=== PATIENT | male | born 1985 | race Hispanic/Latino ===

== ENCOUNTER 2017-03-30 12:39 | Emergency (ER) | payer SELFPAY ==
[~2017-03-30] VITALS: Ht 172.7 cm; Wt 98.5 kg
[2017-03-30 15:55] LABS: HEMATOCRIT 45.7 % (38.0-50.0); MCH 29.8 PG (29.0-34.0); MCHC 35.4 G/DL (30.0-36.0); MEAN PLAT.VOLUME 9.9 uM^3 (9.0-12.4); PLATELET COUNT 246 K/uL (156-360); RBC DIS.WIDTH-SD 36.5 % (39-53); RED BLOOD COUNT 5.44 M/uL (4.00-5.50); WHITE BLOOD COUNT 9.6 K/uL (4.1-10.2)
[2017-03-30 16:01] LABS: D-DIMER ELISA < 150.00 ng/mLDDU (<230)
[2017-03-30 16:05] LABS: CHLORIDE 106 mEq/L (99-109); SODIUM 139 mEq/L (136-147)
[2017-03-30 16:07] LABS: GLUCOSE 99 mg/dL (70-99)
[2017-03-30 16:08] LABS: ANION GAP 10 MEQ/L (2-14)
[2017-03-30 16:09] LABS: TOTAL BILIRUBIN 0.4 mg/dL (0.0-1.0)
[2017-03-30 16:10] LABS: ALKALINE PHOSPHATASE 129 IU/L (3-129)
[2017-03-30 16:11] LABS: GFR ESTIMATE (CALCULATED) > 59 mL/min/
[2017-03-30 16:12] LABS: UREA NITROGEN (BUN) 13 mg/dL (9-23)
[2017-03-30 16:14] LABS: TROP-I INTERPRETATION NEGATIVE; TROPONIN-I < 0.01 ng/mL (0.0-0.30)
[2017-03-30 17:45] VITALS: BP 133/83
== END 2017-03-30 18:00 | disposition home or self-care (01) ==
LOC: EME 12:39
PROVIDERS: Physician Assistant
DX: R42 Dizziness and giddiness (principal); R51 Headache; F17.200 Nicotine dependence, unspecified, uncomplicated
CPT/HCPCS: 71020; 80053; 84484; 85027; 85379; 93005; 99281; 99284; J1885